=== PATIENT | male | born 1960 | race Caucasian/White ===

== ENCOUNTER → 2016-12-18 | Outpatient (REF) | payer MEDICARE, MEDICAID ==
[~2016-12-18] MED LIST: ACET-654 PO; ADV250INH INH; ALBU17IN INH; ALTA1CAP2 PO; ASPI32ECTA PO; ASPI81CH PO; ASPI81TA85 PO; ATEN25TA PO; AUGM875T27 PO; AVEL1TAB PO; CARV12.5 PO; CINA30TA PO; CITA20TA4 PO; CRES20TA PO; CYCL10TA PO; DOCU100C PO; DUCO5TAB PO; FENO134C PO; FENT25PA TD; FOLI1TAB2 PO; GABA-282 PO; LISI-542 PO; MAGN400T5 PO; MUCI600T34 PO; MULTTAB33 PO; NICO21DI5 TD; OMEP40CA2 PO; PERC5TAB6 PO; PRED10TA PO; TIOT18INH INH; TRIC1TAB PO; VITA100T2 PO; ZOFR8TAB PO
[2016-12-18 10:46] LABS: ALBUMIN 3.8 GM/DL (3.2-5.2); ALBUMIN/GLOBULIN RATIO 1.27 (1.00-1.93); ALKALINE PHOSPHATASE 74 U/L (45-117); ALT/SGPT 27 U/L (12-78); ANION GAP 8 MEQ/L (8-16); AST/SGOT 17 U/L (15-37); BILIRUBIN,TOTAL 0.9 MG/DL (0.2-1.0); BLOOD UREA NITROGEN 13 MG/DL (7-18); CALCIUM LEVEL 8.8 MG/DL (8.5-10.1); CARBON DIOXIDE LEVEL 26 MEQ/L (21-32); CHLORIDE LEVEL 107 MEQ/L (98-107); CHOLESTEROL LEVEL 159 MG/DL (<200); CREATININE FOR GFR 0.76 MG/DL (0.70-1.30); GLOMERULAR FILTRATION RATE > 60.0 (>56); GLUCOSE, FASTING 102 MG/DL (70-105); POTASSIUM SERUM 4.1 MEQ/L (3.5-5.1); SODIUM LEVEL 141 MEQ/L (136-145); TOTAL PROTEIN 6.8 GM/DL (6.4-8.2); TRIGLYCERIDES LEVEL 233 MG/DL (<150)
== END ==
LOC: M LABDRAW1 09:15
PROVIDERS: ATTEND Physician Assistant
DX: E78.4 Other hyperlipidemia (principal); Z12.5 Encounter for screening for malignant neoplasm of prostate; I10 Essential (primary) hypertension
CPT/HCPCS: 36415; 80053; 80061; G0103

== ENCOUNTER → 2017-04-17 | Outpatient (REF) | payer MEDICARE, MEDICAID ==
[~2017-04-17] MED LIST changes: -ACET-654 PO; +ACET1TAB17 PO; +ASPI325T24 PO; -ASPI32ECTA PO; -AUGM875T27 PO; +AUGM875T28 PO; -AVEL1TAB PO; +AVEL1TAB3 PO; -DOCU100C PO; +DOCU100C16 PO; +DOXY50CA; -FOLI1TAB2 PO; +FOLI1TAB4 PO; -MUCI600T34 PO; +MUCI600T37 PO; +PERC5TAB12 PO; -PERC5TAB6 PO; +PRED10TA2 PO; +PROAAER10; +ZITHTAB PO
[2017-04-17 12:08] LABS: ALBUMIN 3.8 GM/DL (3.2-5.2); ALBUMIN/GLOBULIN RATIO 1.23 (1.00-1.93); ALKALINE PHOSPHATASE 65 U/L (45-117); ALT/SGPT 29 U/L (12-78); ANION GAP 10 MEQ/L (8-16); AST/SGOT 17 U/L (15-37); BILIRUBIN,DIRECT 0.2 MG/DL (0.0-0.2); BILIRUBIN,TOTAL 0.9 MG/DL (0.2-1.0); BLOOD UREA NITROGEN 13 MG/DL (7-18); CALCIUM LEVEL 9.5 MG/DL (8.5-10.1); CARBON DIOXIDE LEVEL 25 MEQ/L (21-32); CHLORIDE LEVEL 107 MEQ/L (98-107); CHOLESTEROL LEVEL 173 MG/DL (<200); CREATININE FOR GFR 0.66 MG/DL (0.70-1.30); GLOMERULAR FILTRATION RATE > 60.0 (>56); GLUCOSE, FASTING 109 MG/DL (70-105); PHOSPHORUS LEVEL 3.1 MG/DL (2.5-4.9); POTASSIUM SERUM 4.2 MEQ/L (3.5-5.1); SODIUM LEVEL 142 MEQ/L (136-145); TOTAL PROTEIN 6.9 GM/DL (6.4-8.2); TRIGLYCERIDES LEVEL 271 MG/DL (<150)
== END ==
LOC: M LABDRAW1 11:33
PROVIDERS: ATTEND Nurse Practitioner Family
DX: E78.2 Mixed hyperlipidemia (principal); I10 Essential (primary) hypertension

== ENCOUNTER → 2017-08-05 | Outpatient (REF) | payer MEDICARE, MEDICAID ==
[2017-08-05 11:27] LABS: BASO # 0.1 10^3/uL (0.0-0.2); BASO % 0.9 % (0.0-1.0); EOS # 0.2 10^3/uL (0.0-0.50); EOS % 2.7 % (0.0-3.0); IMMATURE GRANULOCYTE % 0.5 % (0-0); LYMPH # 2.8 10^3/uL (1.5-4.5); LYMPH % 34.4 % (24.0-44.0); MEAN CORPUSCULAR HEMOGLOBIN 29.9 pg (27.0-33.0); MEAN CORPUSCULAR HGB CONC 32.2 g/dl (32.0-36.5); MEAN CORPUSCULAR VOLUME 92.6 fl (80.0-96.0); MONO # 0.7 10^3/uL (0.0-0.8); MONO % 8.4 % (0.0-5.0); NEUTROPHILS # 4.3 10^3/uL (1.8-7.7); NEUTROPHILS % 53.1 % (36.0-66.0); PLATELET COUNT, AUTOMATED 391 10^3/uL (150-450); RED CELL DISTRIBUTION WIDTH 13.7 % (11.5-14.5); WHITE BLOOD COUNT 8.2 10^3/uL (4.0-10.0)
[2017-08-05 11:58] LABS: VITAMIN B12 LEVEL 600 PG/ML (247-911)
[2017-08-05 12:08] LABS: ALBUMIN 3.9 GM/DL (3.2-5.2); ALBUMIN/GLOBULIN RATIO 1.34 (1.00-1.93); ALKALINE PHOSPHATASE 65 U/L (45-117); ALT/SGPT 26 U/L (12-78); ANION GAP 4 MEQ/L (8-16); AST/SGOT 19 U/L (7-37); BILIRUBIN,TOTAL 0.8 MG/DL (0.2-1.0); BLOOD UREA NITROGEN 16 MG/DL (7-18); CALCIUM LEVEL 9.1 MG/DL (8.5-10.1); CARBON DIOXIDE LEVEL 30 MEQ/L (21-32); CHLORIDE LEVEL 107 MEQ/L (98-107); CHOLESTEROL LEVEL 169 MG/DL (<200); CREATININE FOR GFR 0.77 MG/DL (0.70-1.30); FREE T4 0.94 NG/DL (0.76-1.46); GLOMERULAR FILTRATION RATE > 60.0 (>56); GLUCOSE, FASTING 93 MG/DL (70-105); POTASSIUM SERUM 4.4 MEQ/L (3.5-5.1); SODIUM LEVEL 141 MEQ/L (136-145); TOTAL PROTEIN 6.8 GM/DL (6.4-8.2); TRIGLYCERIDES LEVEL 226 MG/DL (<150)
[2017-08-05 13:15] LABS: ESTIMATED AVERAGE GLUCOSE 120 MG/DL (60-110)
== END ==
LOC: M LABDRAW1 10:36
DX: I10 Essential (primary) hypertension (principal); R73.01 Impaired fasting glucose; E78.2 Mixed hyperlipidemia; E55.9 Vitamin D deficiency, unspecified
CPT/HCPCS: 82550

== ENCOUNTER → 2017-08-05 | Outpatient (CLI) | payer MEDICARE, MEDICAID | LOC: M SLEEP HO 13:42 | DX: G47.33 Obstructive sleep apnea (adult) (pediatric) (principal); E03.9 Hypothyroidism, unspecified; R73.01 Impaired fasting glucose | CPT/HCPCS: G0399 ==

== ENCOUNTER → 2017-08-12 | Outpatient (CLI) | payer MEDICARE, MEDICAID | LOC: M RAD 07:39 | DX: Z12.2 Encounter for screening for malignant neoplasm of respiratory organs (principal); F17.210 Nicotine dependence, cigarettes, uncomplicated | CPT/HCPCS: G0297 ==

== ENCOUNTER → 2017-10-12 | Outpatient (CLI) | payer MEDICARE, MEDICAID | LOC: M SLEEP 19:20 | DX: G47.33 Obstructive sleep apnea (adult) (pediatric) (principal) | CPT/HCPCS: 95811 ==

== ENCOUNTER → 2017-11-02 | Outpatient (REF) | payer MEDICARE, MEDICAID ==
[2017-11-02 11:55] LABS: BASO # 0.1 10^3/uL (0.0-0.2); BASO % 0.7 % (0.0-1.0); EOS # 0.2 10^3/uL (0.0-0.50); EOS % 2.4 % (0.0-3.0); HEMATOCRIT 48.4 % (42.0-52.0); HEMOGLOBIN 16.1 g/dl (14.0-18.0); IMMATURE GRANULOCYTE % 0.2 % (0-3.0); LYMPH % 33.4 % (24.0-44.0); MEAN CORPUSCULAR HEMOGLOBIN 30.4 pg (27.0-33.0); MEAN CORPUSCULAR HGB CONC 33.3 g/dl (32.0-36.5); MEAN CORPUSCULAR VOLUME 91.3 fl (80.0-96.0); MONO # 0.8 10^3/uL (0.0-0.8); MONO % 8.3 % (0.0-5.0); PLATELET COUNT, AUTOMATED 374 10^3/uL (150-450); RED CELL DISTRIBUTION WIDTH 13.8 % (11.5-14.5); WHITE BLOOD COUNT 9.1 10^3/uL (4.0-10.0)
== END ==
LOC: M LABDRAW1 09:59
DX: I10 Essential (primary) hypertension (principal)
CPT/HCPCS: 86140

== ENCOUNTER → 2017-12-29 | Outpatient (REF) | payer MEDICARE, MEDICAID | LOC: M SFHCPLAZ 12:55 | DX: D29.4 Benign neoplasm of scrotum (principal); L91.8 Other hypertrophic disorders of the skin | CPT/HCPCS: 88305 ==

== ENCOUNTER → 2018-02-19 | Outpatient (REF) | payer MEDICARE, MEDICAID ==
[2018-02-19 13:37] LABS: ALBUMIN 3.5 GM/DL (3.2-5.2); ALBUMIN/GLOBULIN RATIO 1.09 (1.00-1.93); ALKALINE PHOSPHATASE 73 U/L (45-117); ALT/SGPT 28 U/L (12-78); ANION GAP 8 MEQ/L (8-16); AST/SGOT 11 U/L (7-37); BILIRUBIN,TOTAL 0.7 MG/DL (0.2-1.0); BLOOD UREA NITROGEN 14 MG/DL (7-18); CALCIUM LEVEL 8.9 MG/DL (8.5-10.1); CARBON DIOXIDE LEVEL 28 MEQ/L (21-32); CHLORIDE LEVEL 108 MEQ/L (98-107); CHOLESTEROL LEVEL 124 MG/DL (<200); CHOLESTEROL RISK RATIO 3.351 (<5); CREATININE FOR GFR 0.69 MG/DL (0.70-1.30); GLOMERULAR FILTRATION RATE > 60.0 (>56); GLUCOSE, FASTING 99 MG/DL (70-100); HDL CHOLESTEROL 37 MG/DL (>40); LDL CHOLESTEROL 42.8 MG/DL (<100); MAGNESIUM LEVEL 2.2 MG/DL (1.8-2.4); NON-HDL-C 87 MG/DL; POTASSIUM SERUM 4.8 MEQ/L (3.5-5.1); PSA SCREENING 0.91 NG/ML (< 4.0); SODIUM LEVEL 144 MEQ/L (136-145); TOTAL PROTEIN 6.7 GM/DL (6.4-8.2); TRIGLYCERIDES LEVEL 221 MG/DL (<150)
[2018-02-19 13:55] LABS: ESTIMATED AVERAGE GLUCOSE 128 MG/DL (60-110); HEMOGLOBIN A1c 6.1 %
== END ==
LOC: M LABDRAW1 11:59
DX: E78.2 Mixed hyperlipidemia (principal); R73.01 Impaired fasting glucose; Z12.5 Encounter for screening for malignant neoplasm of prostate
CPT/HCPCS: 83735

== ENCOUNTER → 2018-07-27 | Outpatient (REF) | payer MEDICARE, MEDICAID ==
[~2018-07-27] MED LIST changes: -ACET1TAB17 PO; +ACET1TAB55 PO; -ASPI325T24 PO; +ASPI325T25 PO; -FOLI1TAB4 PO; +FOLI1TAB5 PO; -GABA-282 PO; +GABA-843 PO; -VITA100T2 PO; +VITA100T8 PO; -ZOFR8TAB PO; +ZOFR8TAB24 PO
[2018-07-27 11:00] LABS: APPEARANCE, URINE CLEAR (CLEAR); BACTERIA, URINE AUTO NEGATIVE (NEGATIVE); BILIRUBIN, URINE AUTO NEGATIVE (NEGATIVE); BLOOD, URINE BLOOD NEGATIVE (NEGATIVE); COLOR, URINE YELLOW (YELLOW); GLUCOSE, URINE (UA) AUTO NEGATIVE (NEGATIVE); KETONE, URINE AUTO NEGATIVE (NEGATIVE); LEUKOCYTE ESTERASE, URINE AUTO NEGATIVE (NEGATIVE); NITRITE, URINE AUTO NEGATIVE (NEGATIVE); PROTEIN, URINE AUTO NEGATIVE (NEGATIVE); RBC, URINE AUTO 1 /HPF (0-3); SPECIFIC GRAVITY URINE AUTO 1.016 (1.002-1.035); SQUAMOUS EPITHELIAL CELL UR AU 0 /HPF (0-6); UROBILINOGEN, URINE AUTO 0.2 mg/dL (0.0-2.0); WBC, URINE AUTO 0 /HPF (0-3)
[2018-07-27 11:15] LABS: BASO # 0.1 10^3/uL (0.0-0.2); BASO % 0.7 % (0.0-1.0); EOS # 0.2 10^3/uL (0.0-0.50); EOS % 2.5 % (0.0-3.0); HEMOGLOBIN 15.9 g/dl (13.5-17.5); LYMPH # 2.9 10^3/uL (1.5-4.5); MEAN CORPUSCULAR HEMOGLOBIN 30.5 pg (27.0-33.0); MEAN CORPUSCULAR HGB CONC 33.1 g/dl (32.0-36.5); MONO # 0.7 10^3/uL (0.0-0.8); MONO % 7.6 % (0.0-5.0); NEUTROPHILS # 4.7 10^3/uL (1.8-7.7); PLATELET COUNT, AUTOMATED 328 10^3/uL (150-450); RED BLOOD COUNT 5.22 10^6/uL (4.30-6.10); WHITE BLOOD COUNT 8.6 10^3/uL (4.0-10.0)
[2018-07-27 11:25] LABS: ALBUMIN 3.7 GM/DL (3.2-5.2); ALT/SGPT 31 U/L (12-78); BILIRUBIN,TOTAL 0.8 MG/DL (0.2-1.0); BLOOD UREA NITROGEN 16 MG/DL (7-18); CALCIUM LEVEL 9.2 MG/DL (8.5-10.1); CARBON DIOXIDE LEVEL 29 MEQ/L (21-32); CHLORIDE LEVEL 106 MEQ/L (98-107); CREATININE FOR GFR 0.67 MG/DL (0.70-1.30); GLOMERULAR FILTRATION RATE > 60.0 (>56); GLUCOSE, FASTING 92 MG/DL (70-100); POTASSIUM SERUM 4.8 MEQ/L (3.5-5.1); SODIUM LEVEL 141 MEQ/L (136-145); TOTAL PROTEIN 6.9 GM/DL (6.4-8.2)
[2018-07-27 11:33] LABS: PTH INTACT 34.6 PG/ML (18.5-88.0); TOTAL 25(OH) VITAMIN D 30.9 NG/ML (30.0-100.0); VITAMIN B12 LEVEL 471 PG/ML (247-911)
[2018-07-27 12:39] LABS: MALB URINE SIEMENS 5.2 MG/L; MAU/CREAT RATIO 4.6 MCG/MG (0.0-30.0)
== END ==
LOC: M LABDRAW1 10:26
PROVIDERS: ATTEND Family Medicine
DX: R73.01 Impaired fasting glucose (principal); E55.9 Vitamin D deficiency, unspecified; D75.89 Other specified diseases of blood and blood-forming organs

== ENCOUNTER → 2018-08-16 | Outpatient (CLI) | payer MEDICARE, MEDICAID ==
[~2018-08-16] MED LIST changes: +FOLI1TAB11 PO; -FOLI1TAB5 PO; -NICO21DI5 TD; +NICO21DI6 TD
--- NOTE | 2018-08-16 08:54 | REP ---
Low-dose lung cancer screening CT study of the chest without contrast: History: Nicotine dependence. Comparison study is from August 12, 2017, May 06, 2016, March 28, 2015, and January 28, 2014. Dose reduction was performed utilizing CARE dose with automated adjustment of the kV and MAS according to patient size; iterative reconstruction, automated exposure control, as well as adaptive dose shielding. CT findings: There are scattered areas of linear fibrosis in the right upper lobe and right lower lobe which are unchanged from August 12, 2017 study and improved when compared with the April 2016 exam. The right lower lobe fibrotic changes are less prominent than on the August 12, 2017 exam. No significant pulmonary nodule or mass lesion is observed. Impression: Lung-RADS category II benign findings. Stable fibrotic areas on the right. Annual screening recommended. Electronically Signed by Omar Jacome MD 08/16/2018 10:56 A
== END ==
LOC: M RAD 07:36
PROVIDERS: ATTEND Family Medicine
DX: Z12.2 Encounter for screening for malignant neoplasm of respiratory organs (principal); Z87.891 Personal history of nicotine dependence

== ENCOUNTER → 2019-08-22 | Outpatient (REF) | payer MEDICARE, MEDICAID ==
[~2019-08-22] MED LIST changes: +ASPI-255 PO; -ASPI325T25 PO; -ASPI81CH PO; +ASPI81CH49 PO; -CINA30TA PO; +CINA30TA4 PO; -CITA20TA4 PO; +CITA20TA6 PO; -CRES20TA PO; +CRES20TA2 PO; +FENT25DI33 TD; -FENT25PA TD; -OMEP40CA2 PO; +OMEP40CA97 PO; +PRED-351 PO; -PRED10TA PO
[2019-08-22 12:05] LABS: BASO # 0.1 10^3/uL (0.0-0.2); BASO % 0.8 % (0.0-1.0); EOS # 0.2 10^3/uL (0.0-0.5); HEMATOCRIT 51.8 % (42.0-52.0); HEMOGLOBIN 16.2 g/dl (13.5-17.5); LYMPH # 2.5 10^3/uL (1.5-5.0); LYMPH % 31.7 % (24.0-44.0); MEAN CORPUSCULAR HEMOGLOBIN 29.8 pg (27.0-33.0); MEAN CORPUSCULAR HGB CONC 31.3 g/dl (32.0-36.5); MEAN CORPUSCULAR VOLUME 95.4 fl (80.0-96.0); MONO # 0.7 10^3/uL (0.0-0.8); MONO % 9.2 % (0.0-5.0); NEUTROPHILS # 4.4 10^3/uL (1.5-8.5); PLATELET COUNT, AUTOMATED 322 10^3/uL (150-450); RED BLOOD COUNT 5.43 10^6/uL (4.30-6.10)
[2019-08-22 12:46] LABS: CHOLESTEROL RISK RATIO 4.575 (<5); FREE T4 0.83 NG/DL (0.76-1.46); MAGNESIUM LEVEL 2.2 MG/DL (1.8-2.4); THYROID STIMULATING HORMONE 1.5 uIU/ML (0.358-3.740)
== END ==
LOC: M LABDRAW1 11:29
PROVIDERS: ATTEND Family Medicine
DX: Z12.5 Encounter for screening for malignant neoplasm of prostate (principal); D75.89 Other specified diseases of blood and blood-forming organs; E78.2 Mixed hyperlipidemia; R73.01 Impaired fasting glucose; J30.89 Other allergic rhinitis
CPT/HCPCS: 36415; 80061; 83036; 83525; 83735; 84439; 84443; 85025; 86003; G0103

== ENCOUNTER → 2019-08-30 | Outpatient (CLI) | payer MEDICAID, MEDICARE ==
--- NOTE | 2019-08-30 09:16 | REP ---
Low-dose lung screening chest CT: The study is performed without IV contrast. Images are presented at lung windowing only. Comparisons are 08/16/2018 and 08/12/2017. There are no nodules or masses. There are no infiltrates or pleural effusions. There is chronic stable parenchymal scarring in the right upper lobe and lingula, unchanged. There is chronic stable focal mild pleural thickening posterolaterally in the right upper lobe, unchanged. Impression: There are chronic stable findings. There are no lung masses or nodules. Category one low-dose lung screening chest CT. The probability of malignancy is less than 1%. Electronically Signed by Virgilio Lord MD 08/30/2019 09:08 A
== END ==
LOC: M RAD 07:55
PROVIDERS: ATTEND Family Medicine
DX: Z12.2 Encounter for screening for malignant neoplasm of respiratory organs (principal); Z87.891 Personal history of nicotine dependence

== ENCOUNTER → 2020-01-23 | Outpatient (REF) | payer MEDICAID, MEDICARE ==
[~2020-01-23] MED LIST changes: -ASPI81TA85 PO; +ASPI81TA86 PO; +CYCL-707 PO; -CYCL10TA PO; -DUCO5TAB PO; +DUCO5TAB2 PO
[2020-01-23 16:24] LABS: ALBUMIN 3.8 GM/DL (3.2-5.2); ALT/SGPT 30 U/L (12-78); BILIRUBIN,TOTAL 0.8 MG/DL (0.2-1.0); BLOOD UREA NITROGEN 18 MG/DL (7-18); CALCIUM LEVEL 9.3 MG/DL (8.5-10.1); CARBON DIOXIDE LEVEL 28 MEQ/L (21-32); CHLORIDE LEVEL 107 MEQ/L (98-107); CHOLESTEROL LEVEL 180 MG/DL (<200); CREATININE FOR GFR 0.73 MG/DL (0.70-1.30); GLOMERULAR FILTRATION RATE > 60.0 (>56); GLUCOSE, FASTING 84 MG/DL (70-100); HDL CHOLESTEROL 36 MG/DL (>40); LDL CHOLESTEROL 67 MG/DL (<100); NON-HDL-C 144 MG/DL; SODIUM LEVEL 140 MEQ/L (136-145); TOTAL PROTEIN 6.8 GM/DL (6.4-8.2); TRIGLYCERIDES LEVEL 386 MG/DL (<150)
[2020-01-23 16:38] LABS: BASO # 0.1 10^3/uL (0.0-0.2); BASO % 0.6 % (0.0-1.0); EOS # 0.3 10^3/uL (0.0-0.5); EOS % 3.4 % (0.0-3.0); HEMATOCRIT 49.1 % (42.0-52.0); HEMOGLOBIN 16.3 g/dl (13.5-17.5); LYMPH # 3.6 10^3/uL (1.5-5.0); MEAN CORPUSCULAR HEMOGLOBIN 31.3 pg (27.0-33.0); MEAN CORPUSCULAR HGB CONC 33.2 g/dl (32.0-36.5); MEAN CORPUSCULAR VOLUME 94.4 fl (80.0-96.0); MONO # 0.9 10^3/uL (0.0-0.8); MONO % 9.8 % (0.0-5.0); NEUTROPHILS # 4.5 10^3/uL (1.5-8.5); NEUTROPHILS % 47.9 % (36.0-66.0); PLATELET COUNT, AUTOMATED 315 10^3/uL (150-450); WHITE BLOOD COUNT 9.3 10^3/uL (4.0-10.0)
[2020-01-25 11:08] LABS: H PYLORI SERUM QUANT IgG ABY 0.23 (0.00-0.79); INSULIN LEVEL 17.9 uIU/mL (2.6-24.9)
== END ==
LOC: M SFHCPLAZ 14:24
PROVIDERS: ATTEND Family Medicine
DX: M47.816 Spondylosis without myelopathy or radiculopathy, lumbar region (principal); R73.01 Impaired fasting glucose; I10 Essential (primary) hypertension; E78.2 Mixed hyperlipidemia
CPT/HCPCS: 36415; 80053; 80061; 83036; 83525; 85025; 86677; G0463

== ENCOUNTER → 2020-06-21 | Outpatient (REF) | payer MEDICARE, MEDICAID ==
[2020-06-21 15:42] LABS: BASO # 0.1 10^3/uL (0.0-0.2); BASO % 0.5 % (0.0-1.0); EOS # 0.2 10^3/uL (0.0-0.5); EOS % 2.3 % (0.0-3.0); HEMATOCRIT 51.4 % (42.0-52.0); HEMOGLOBIN 16.4 g/dl (13.5-17.5); LYMPH # 2.9 10^3/uL (1.5-5.0); LYMPH % 28.9 % (24.0-44.0); MEAN CORPUSCULAR HEMOGLOBIN 30.2 pg (27.0-33.0); MEAN CORPUSCULAR HGB CONC 31.9 g/dl (32.0-36.5); MEAN CORPUSCULAR VOLUME 94.7 fl (80.0-96.0); MONO # 0.9 10^3/uL (0.0-0.8); MONO % 8.8 % (0.0-5.0); NEUTROPHILS % 59.1 % (36.0-66.0); PLATELET COUNT, AUTOMATED 334 10^3/uL (150-450); RED BLOOD COUNT 5.43 10^6/uL (4.30-6.10); WHITE BLOOD COUNT 10.1 10^3/uL (4.0-10.0)
[2020-06-21 15:55] LABS: HEMOGLOBIN A1c 5.7 %
[2020-06-21 16:16] LABS: ALBUMIN 3.9 GM/DL (3.2-5.2); ALT/SGPT 26 U/L (12-78); BILIRUBIN,TOTAL 0.9 MG/DL (0.2-1.0); BLOOD UREA NITROGEN 18 MG/DL (7-18); CALCIUM LEVEL 9.9 MG/DL (8.5-10.1); CARBON DIOXIDE LEVEL 27 MEQ/L (21-32); CHLORIDE LEVEL 105 MEQ/L (98-107); FREE T4 0.84 NG/DL (0.76-1.46); GLOMERULAR FILTRATION RATE > 60.0 (>56); GLUCOSE, FASTING 93 MG/DL (70-100); NT-PRO BNP 24 PG/ML (<125); POTASSIUM SERUM 4.8 MEQ/L (3.5-5.1); SODIUM LEVEL 139 MEQ/L (136-145)
== END ==
LOC: M SFHCPLAZ 12:16
PROVIDERS: ATTEND Family Medicine
DX: R73.01 Impaired fasting glucose (principal); I10 Essential (primary) hypertension; J44.9 Chronic obstructive pulmonary disease, unspecified; R61 Generalized hyperhidrosis; Z12.5 Encounter for screening for malignant neoplasm of prostate
CPT/HCPCS: 36415; 80053; 83036; 83525; 83880; 84439; 84443; 85025; G0103; G0463

== ENCOUNTER → 2020-09-03 | Outpatient (CLI) | payer MEDICAID, MEDICARE ==
[~2020-09-03] MED LIST changes: +GABA-282 PO; -GABA-843 PO; -LISI-542 PO; +LISI-898 PO
--- NOTE | 2020-09-04 10:20 | REP ---
INDICATION: ENCOUNTER FOR SCREENING FOR LUNG CANCER COMPARISON: 08/30/2019 TECHNIQUE: Axial noncontrast images from the thoracic inlet to the upper abdomen using low-dose lung screening technique (LDCT). FINDINGS: Bilateral lung estrada are well aerated and again demonstrate minimal stable chronic fibroatelectatic changes. No acute consolidation, significant nodule or mass. No effusion. No pneumothorax. Tracheobronchial tree is patent. No obvious adenopathy. Atherosclerotic changes to the thoracic aorta and coronary arteries noted. IMPRESSION: Stable chronic changes. Lung-RADS category 1. Management recommendations include annual low-dose CT surveillance. <Electronically signed by Guanaco Kaur > 09/04/20 [id number]
== END ==
LOC: M RAD 08:35
PROVIDERS: ATTEND Family Medicine
DX: Z12.2 Encounter for screening for malignant neoplasm of respiratory organs (principal)

== ENCOUNTER → 2021-03-28 | Outpatient (CLI) | payer MEDICARE ==
[~2021-03-28] MED LIST changes: +CVS50CAP PO; +EZET10TA21; +HYDR-3713 PO; +MELO7.5T35; +OMEP40CA4 PO; -OMEP40CA97 PO; +ZOFR4TAB16 PO
[2021-03-28 12:07] LABS: BLOOD UREA NITROGEN 16 MG/DL (7-18); CALCIUM LEVEL 9.1 MG/DL (8.5-10.1); CARBON DIOXIDE LEVEL 27 MEQ/L (21-32); CHLORIDE LEVEL 106 MEQ/L (98-107); CHOLESTEROL LEVEL 181 MG/DL (<200); CHOLESTEROL RISK RATIO 5.171 (<5); CREATININE FOR GFR 0.71 MG/DL (0.70-1.30); GLOMERULAR FILTRATION RATE > 60.0 (>56); GLUCOSE, FASTING 110 MG/DL (70-100); HDL CHOLESTEROL 35 MG/DL (>40); NON-HDL-C 146 MG/DL; POTASSIUM SERUM 4.4 MEQ/L (3.5-5.1); SODIUM LEVEL 137 MEQ/L (136-145); TRIGLYCERIDES LEVEL 507 MG/DL (<150)
== END ==
LOC: M PLALAB 07:09
PROVIDERS: ATTEND Physician Assistant
DX: E78.2 Mixed hyperlipidemia (principal)

== ENCOUNTER → 2021-03-28 | Outpatient (CLI) | payer MEDICARE ==
[2021-03-28 11:39] LABS: BASO # 0.1 10^3/uL (0.0-0.2); BASO % 0.9 % (0.0-1.0); EOS # 0.2 10^3/uL (0.0-0.5); EOS % 2.8 % (0.0-3.0); HEMATOCRIT 50.3 % (42.0-52.0); HEMOGLOBIN 16.4 g/dl (13.5-17.5); LYMPH # 2.8 10^3/uL (1.5-5.0); LYMPH % 32.8 % (24.0-44.0); MEAN CORPUSCULAR HEMOGLOBIN 30.8 pg (27.0-33.0); MEAN CORPUSCULAR HGB CONC 32.6 g/dl (32.0-36.5); MEAN CORPUSCULAR VOLUME 94.5 fl (80.0-96.0); MONO # 0.7 10^3/uL (0.0-0.8); MONO % 7.8 % (2.0-8.0); NEUTROPHILS # 4.7 10^3/uL (1.5-8.5); NEUTROPHILS % 55.2 % (36.0-66.0); PLATELET COUNT, AUTOMATED 291 10^3/uL (150-450); RED BLOOD COUNT 5.32 10^6/uL (4.30-6.10); WHITE BLOOD COUNT 8.4 10^3/uL (4.0-10.0)
[2021-03-28 11:52] LABS: HEMOGLOBIN A1c 5.9 %
[2021-03-28 12:07] LABS: ALBUMIN 3.7 GM/DL (3.2-5.2); ALT/SGPT 36 U/L (12-78); BILIRUBIN,TOTAL 0.9 MG/DL (0.2-1.0); BLOOD UREA NITROGEN 18 MG/DL (7-18); CALCIUM LEVEL 8.8 MG/DL (8.5-10.1); CARBON DIOXIDE LEVEL 27 MEQ/L (21-32); CHLORIDE LEVEL 106 MEQ/L (98-107); CHOLESTEROL LEVEL 181 MG/DL (<200); CHOLESTEROL RISK RATIO 5.027 (<5); CREATININE FOR GFR 0.69 MG/DL (0.70-1.30); FERRITIN 159 NG/ML (26-388); GLOMERULAR FILTRATION RATE > 60.0 (>56); GLUCOSE, FASTING 111 MG/DL (70-100); HDL CHOLESTEROL 36 MG/DL (>40); NON-HDL-C 145 MG/DL; POTASSIUM SERUM 4.4 MEQ/L (3.5-5.1); SODIUM LEVEL 137 MEQ/L (136-145); TOTAL PROTEIN 6.8 GM/DL (6.4-8.2); TRIGLYCERIDES LEVEL 505 MG/DL (<150); VITAMIN B12 LEVEL 506 PG/ML (247-911)
== END ==
LOC: M PLALAB 07:06
PROVIDERS: ATTEND Family Medicine
DX: D75.89 Other specified diseases of blood and blood-forming organs (principal); R73.01 Impaired fasting glucose; E78.2 Mixed hyperlipidemia; Z79.899 Other long term (current) drug therapy
CPT/HCPCS: 36415; 80048; 80053; 80061; 82607; 82728; 83036; 83525; 84165; 85025; 86335; G0103

== ENCOUNTER → 2021-09-04 | Outpatient (CLI) | payer MEDICARE ==
[~2021-09-04] MED LIST changes: -LISI-898 PO; +LISI5TAB11 PO
== END ==
LOC: M RAD 06:55
PROVIDERS: ATTEND Family Medicine
DX: Z12.2 Encounter for screening for malignant neoplasm of respiratory organs (principal); F17.218 Nicotine dependence, cigarettes, with other nicotine-induced disorders

== ENCOUNTER → 2021-10-07 | Outpatient (CLI) | payer MEDICARE ==
[~2021-10-07] MED LIST changes: -FENO134C PO; +FENO134C16 PO
[2021-10-07 10:55] LABS: ALBUMIN 3.8 GM/DL (3.2-5.2); ALT/SGPT 32 U/L (12-78); BILIRUBIN,TOTAL 1.3 MG/DL (0.2-1.0); BLOOD UREA NITROGEN 18 MG/DL (7-18); CALCIUM LEVEL 9.4 MG/DL (8.5-10.1); CARBON DIOXIDE LEVEL 26 MEQ/L (21-32); CHLORIDE LEVEL 109 MEQ/L (98-107); CHOLESTEROL LEVEL 176 MG/DL (<200); CREATININE FOR GFR 0.69 MG/DL (0.70-1.30); GLOMERULAR FILTRATION RATE > 60.0 (>56); GLUCOSE, FASTING 106 MG/DL (70-100); HDL CHOLESTEROL 44 MG/DL (>40); LDL CHOLESTEROL 64 MG/DL (<100); NON-HDL-C 132 MG/DL; NT-PRO BNP 27 PG/ML (<125); POTASSIUM SERUM 4.3 MEQ/L (3.5-5.1); SODIUM LEVEL 141 MEQ/L (136-145); TRIGLYCERIDES LEVEL 339 MG/DL (<150)
[2021-10-07 11:05] LABS: HEMOGLOBIN A1c 5.8 %; PTH INTACT 40.3 PG/ML (18.5-88.0)
[2021-10-08 09:07] LABS: H PYLORI SERUM QUANT IgG ABY 0.22 (0.00-0.79)
== END ==
LOC: M PLALAB 07:03
PROVIDERS: ATTEND Family Medicine
DX: R73.01 Impaired fasting glucose (principal); E78.00 Pure hypercholesterolemia, unspecified; E78.2 Mixed hyperlipidemia; Z79.899 Other long term (current) drug therapy

== ENCOUNTER → 2021-10-07 | Outpatient (CLI) | payer MEDICARE ==
[~2021-10-07] MED LIST changes: +FENO134C PO; -FENO134C16 PO
[2021-10-07 11:25] LABS: ALBUMIN 3.8 GM/DL (3.2-5.2); ALT/SGPT 30 U/L (12-78); BILIRUBIN,TOTAL 1.2 MG/DL (0.2-1.0); BLOOD UREA NITROGEN 16 MG/DL (7-18); CALCIUM LEVEL 9.5 MG/DL (8.5-10.1); CARBON DIOXIDE LEVEL 22 MEQ/L (21-32); CHLORIDE LEVEL 108 MEQ/L (98-107); CHOLESTEROL LEVEL 173 MG/DL (<200); CHOLESTEROL RISK RATIO 4.119 (<5); CREATININE FOR GFR 0.67 MG/DL (0.70-1.30); GLOMERULAR FILTRATION RATE > 60.0 (>56); GLUCOSE, FASTING 102 MG/DL (70-100); HDL CHOLESTEROL 42 MG/DL (>40); LDL CHOLESTEROL 64 MG/DL (<100); NON-HDL-C 131 MG/DL; POTASSIUM SERUM 4.4 MEQ/L (3.5-5.1); SODIUM LEVEL 138 MEQ/L (136-145); TOTAL PROTEIN 6.7 GM/DL (6.4-8.2); TRIGLYCERIDES LEVEL 336 MG/DL (<150)
== END ==
LOC: M PLALAB 07:06
PROVIDERS: ATTEND Physician Assistant
DX: E78.2 Mixed hyperlipidemia (principal)

== ENCOUNTER → 2021-10-22 | Outpatient (CLI) | payer MEDICARE ==
[~2021-10-22] MED LIST changes: -FENO134C PO; +FENO134C16 PO
== END ==
LOC: M RAD 08:39
PROVIDERS: ATTEND Family Medicine
DX: K76.0 Fatty (change of) liver, not elsewhere classified (principal)

== ENCOUNTER → 2022-03-30 | Outpatient (CLI) | payer MEDICARE ==
[~2022-03-30] MED LIST changes: +CELE1CAP4 PO; +D 50CAP2 PO; -DOXY50CA; +DOXY50CA PO; -EZET10TA21; +EZET10TA21 PO; +FENO1CAP18 PO; +LORA-753 PO; +METF750T36 PO; +ONETAB9 PO; +SENN-111 PO
== END ==
LOC: M LABSMTC 10:15
PROVIDERS: ATTEND Anesthesiology
DX: Z01.818 Encounter for other preprocedural examination (principal); Z11.52 Encounter for screening for COVID-19

== ENCOUNTER → 2022-04-23 | Outpatient (CLI) | payer MEDICARE ==
[2022-04-23 10:08] LABS: BASO # 0.1 10^3/uL (0.0-0.2); BASO % 1.1 % (0.0-1.0); EOS # 0.2 10^3/uL (0.0-0.5); EOS % 3.2 % (0.0-3.0); HEMATOCRIT 51.3 % (42.0-52.0); HEMOGLOBIN 16.4 g/dl (13.5-17.5); LYMPH # 2.1 10^3/uL (1.5-5.0); LYMPH % 29.6 % (24.0-44.0); MEAN CORPUSCULAR HEMOGLOBIN 30.9 pg (27.0-33.0); MEAN CORPUSCULAR VOLUME 96.6 fl (80.0-96.0); MONO # 0.6 10^3/uL (0.0-0.8); MONO % 8.8 % (2.0-8.0); NEUTROPHILS # 4.1 10^3/uL (1.5-8.5); NEUTROPHILS % 56.9 % (36.0-66.0); PLATELET COUNT, AUTOMATED 324 10^3/uL (150-450); RED BLOOD COUNT 5.31 10^6/uL (4.30-6.10); WHITE BLOOD COUNT 7.2 10^3/uL (4.0-10.0)
[2022-04-23 10:37] LABS: HEMOGLOBIN A1c 5.8 %
[2022-04-23 10:58] LABS: ALBUMIN 3.9 GM/DL (3.2-5.2); ALT/SGPT 28 U/L (12-78); BILIRUBIN,TOTAL 0.8 MG/DL (0.2-1.0); BLOOD UREA NITROGEN 16 MG/DL (7-18); CALCIUM LEVEL 9.9 MG/DL (8.8-10.2); CARBON DIOXIDE LEVEL 30 MEQ/L (21-32); CHLORIDE LEVEL 108 MEQ/L (98-107); CREATININE FOR GFR 0.87 MG/DL (0.70-1.30); FERRITIN 168 NG/ML (26-388); GLOMERULAR FILTRATION RATE > 60.0 (>49); GLUCOSE, FASTING 114 MG/DL (70-100); POTASSIUM SERUM 5.1 MEQ/L (3.5-5.1); SODIUM LEVEL 140 MEQ/L (136-145); TOTAL PROTEIN 6.9 GM/DL (6.4-8.2)
[2022-04-23 11:22] LABS: TOTAL 25(OH) VITAMIN D 30.5 NG/ML (30.0-100.0)
[2022-04-23 11:23] LABS: PTH INTACT 21.7 PG/ML (18.5-88.0)
[2022-04-24 12:08] LABS: INSULIN LEVEL 23.9 uIU/mL (2.6-24.9); TISSUE TRANSGLUTAMINASE IgA <2 U/mL (0-3)
== END ==
LOC: M PLALAB 07:47
PROVIDERS: ATTEND Family Medicine
DX: E55.9 Vitamin D deficiency, unspecified (principal); R73.01 Impaired fasting glucose; D75.89 Other specified diseases of blood and blood-forming organs; R14.0 Abdominal distension (gaseous); K76.0 Fatty (change of) liver, not elsewhere classified; Z12.5 Encounter for screening for malignant neoplasm of prostate; E78.2 Mixed hyperlipidemia; Z79.899 Other long term (current) drug therapy
CPT/HCPCS: 36415; 80053; 82105; 82306; 82728; 83036; 83525; 83970; 85025; 85046; 86364; G0103

== ENCOUNTER → 2022-08-11 | Outpatient (CLI) | payer MEDICARE ==
[~2022-08-11] MED LIST changes: -FENO134C16 PO; +FENO134C20 PO; +NITR0.4S14 SL
== END ==
LOC: M LABSMTC 08:56
PROVIDERS: ATTEND Anesthesiology
DX: Z01.812 Encounter for preprocedural laboratory examination (principal); Z11.52 Encounter for screening for COVID-19

== ENCOUNTER 2022-08-13 06:43 | Day surgery (SDC) | payer MEDICARE, OTHER ==
[~2022-08-13] VITALS: Ht 172.7 cm; Wt 107.0 kg
[~2022-08-13 06:43] MED LIST changes: +NS 1,000 ML IV ONE
[2022-08-13] MEDS ORDERED: fentaNYL 100 MCG/2 ML INJECTION As Ordered ONE (07:30)
[2022-08-13] MEDS ORDERED: LIDOCAINE 2% 100MG/5ML SDV (FOR ANES.) As Ordered ONE (07:41)
[2022-08-13] MEDS ORDERED: propofoL 200 MG/20 ML VIAL As Ordered ONE (07:41)
[2022-08-13 08:19] VITALS: BP 118/69
== END 2022-08-13 08:22 | disposition home or self-care (01) ==
LOC: M OPP 06:43
PROVIDERS: ATTEND Internal Medicine Gastroenterology
DX: Z86.010 Personal history of colon polyps (principal); D12.3 Benign neoplasm of transverse colon; K64.0 First degree hemorrhoids; K57.30 Diverticulosis of large intestine without perforation or abscess without bleeding; Z98.0 Intestinal bypass and anastomosis status; K22.89 Other specified disease of esophagus; K44.9 Diaphragmatic hernia without obstruction or gangrene; I25.10 Atherosclerotic heart disease of native coronary artery without angina pectoris; I10 Essential (primary) hypertension; E78.5 Hyperlipidemia, unspecified; K21.9 Gastro-esophageal reflux disease without esophagitis; M19.90 Unspecified osteoarthritis, unspecified site; F41.9 Anxiety disorder, unspecified; F32.A Depression, unspecified; G43.909 Migraine, unspecified, not intractable, without status migrainosus; J44.9 Chronic obstructive pulmonary disease, unspecified; G47.30 Sleep apnea, unspecified; F17.210 Nicotine dependence, cigarettes, uncomplicated; Z86.73 Personal history of transient ischemic attack (TIA), and cerebral infarction without residual deficits; Z95.5 Presence of coronary angioplasty implant and graft; Z79.899 Other long term (current) drug therapy
CPT/HCPCS: 43239; 45385; 88305; J3010

== ENCOUNTER → 2022-09-24 | Outpatient (CLI) | payer MEDICARE, OTHER ==
[~2022-09-24] MED LIST changes: -NS 1,000 ML IV ONE
[2022-09-24 10:59] LABS: BASO # 0.1 10^3/uL (0.0-0.2); BASO % 1.1 % (0.0-1.0); EOS # 0.3 10^3/uL (0.0-0.5); EOS % 3.6 % (0.0-3.0); HEMATOCRIT 49.9 % (42.0-52.0); HEMOGLOBIN 16.5 g/dl (13.5-17.5); LYMPH # 2.3 10^3/uL (1.5-5.0); LYMPH % 32.6 % (24.0-44.0); MEAN CORPUSCULAR HEMOGLOBIN 31.1 pg (27.0-33.0); MEAN CORPUSCULAR HGB CONC 33.1 g/dl (32.0-36.5); MEAN CORPUSCULAR VOLUME 94.2 fl (80.0-96.0); MONO # 0.7 10^3/uL (0.0-0.8); MONO % 9.2 % (2.0-8.0); NEUTROPHILS # 3.8 10^3/uL (1.5-8.5); NEUTROPHILS % 53.1 % (36.0-66.0); PLATELET COUNT, AUTOMATED 322 10^3/uL (150-450); WHITE BLOOD COUNT 7.2 10^3/uL (4.0-10.0)
[2022-09-24 11:30] LABS: C REACTIVE PROTEIN QUANTITATIV < 0.40 MG/DL (<1.0)
[2022-09-24 11:31] LABS: CPK CREATINE PHOSPHOKINASE 52 U/L (46-171)
[2022-09-24 12:05] LABS: HEMOGLOBIN A1c 5.8 % (4.0-6.0)
[2022-09-24 14:34] LABS: ALBUMIN 3.9 G/DL (3.2-5.2); ALKALINE PHOSPHATASE 51 U/L (46-116); ALT/SGPT 31 U/L (7.0-40); AST/SGOT 25 U/L (<34); BILIRUBIN,TOTAL 0.9 MG/DL (0.3-1.2); BLOOD UREA NITROGEN 21 MG/DL (9-23); CARBON DIOXIDE LEVEL 28 MMOL/L (20-31); CHLORIDE LEVEL 106 MMOL/L (98-107); CHOLESTEROL LEVEL 209 MG/DL (<200); CHOLESTEROL RISK RATIO 4.18 (<5); CREATININE FOR GFR 0.78 MG/DL (0.70-1.30); GLOMERULAR FILTRATION RATE > 60.0 (>49); GLUCOSE, FASTING 102 MG/DL (74-106); NON-HDL-C 159 MG/DL; SODIUM LEVEL 140 MMOL/L (136-145)
[2022-09-24 22:06] LABS: LDL CHOLESTEROL 96.2 MG/DL (<100); TOTAL PROTEIN 6.9 G/DL (5.7-8.2); TRIGLYCERIDES LEVEL 314 MG/DL (<150)
[2022-09-25 06:08] LABS: APOLIPOPROTEIN B/A-1 RATIO 0.7 ratio (0.0-0.7)
== END ==
LOC: M PLALAB 07:19
PROVIDERS: ATTEND Family Medicine
DX: K76.0 Fatty (change of) liver, not elsewhere classified (principal); I10 Essential (primary) hypertension; E78.2 Mixed hyperlipidemia; Z79.899 Other long term (current) drug therapy

== ENCOUNTER → 2022-09-29 | Outpatient (CLI) | payer OTHER, MEDICARE | LOC: M PLAIMG 11:06 | PROVIDERS: ATTEND Family Medicine | DX: M17.0 Bilateral primary osteoarthritis of knee (principal); M26.642 Arthritis of left temporomandibular joint ==

== ENCOUNTER → 2022-11-05 | Outpatient (CLI) | payer MEDICARE, OTHER | LOC: M RAD 16:48 | PROVIDERS: ATTEND Family Medicine | DX: Z87.891 Personal history of nicotine dependence (principal) ==

== ENCOUNTER → 2023-03-16 | Outpatient (CLI) | payer OTHER ==
[~2023-03-16] MED LIST changes: -SENN-111 PO; +SENN-188 PO
[2023-03-16 10:53] LABS: BASO # 0.1 10^3/uL (0.0-0.2); BASO % 0.9 % (0.0-1.0); EOS # 0.2 10^3/uL (0.0-0.5); EOS % 3.1 % (0.0-3.0); HEMATOCRIT 50.5 % (42.0-52.0); HEMOGLOBIN 16.8 g/dl (13.5-17.5); LYMPH # 2.1 10^3/uL (1.5-5.0); MEAN CORPUSCULAR HEMOGLOBIN 31.4 pg (27.0-33.0); MEAN CORPUSCULAR HGB CONC 33.3 g/dl (32.0-36.5); MEAN CORPUSCULAR VOLUME 94.4 fl (80.0-96.0); MONO # 0.7 10^3/uL (0.0-0.8); MONO % 9.2 % (2.0-8.0); NEUTROPHILS # 4.4 10^3/uL (1.5-8.5); NEUTROPHILS % 58.3 % (36.0-66.0); PLATELET COUNT, AUTOMATED 333 10^3/uL (150-450); RED BLOOD COUNT 5.35 10^6/uL (4.30-6.10); WHITE BLOOD COUNT 7.6 10^3/uL (4.0-10.0)
[2023-03-16 11:15] LABS: HEMOGLOBIN A1c 5.4 % (4.0-6.0)
[2023-03-16 11:19] LABS: ALKALINE PHOSPHATASE 51 U/L (46-116); ALT/SGPT 28 U/L (7.0-40); AST/SGOT 18 U/L (<34); BILIRUBIN,TOTAL 0.7 MG/DL (0.3-1.2); BLOOD UREA NITROGEN 17 MG/DL (9-23); CALCIUM LEVEL 9.7 MG/DL (8.3-10.6); CARBON DIOXIDE LEVEL 29 MMOL/L (20-31); CHLORIDE LEVEL 105 MMOL/L (98-107); CREATININE FOR GFR 0.78 MG/DL (0.70-1.30); GLOMERULAR FILTRATION RATE > 60.0 (>49); GLUCOSE, FASTING 101 MG/DL (74-106); POTASSIUM SERUM 5.1 MMOL/L (3.5-5.1); SODIUM LEVEL 140 MMOL/L (136-145)
[2023-03-17 19:06] LABS: IMMUNOTYPING SERUM IGA SO 180 mg/dL (61-437); IMMUNOTYPING SERUM IGM SO 80 mg/dL (20-172); INSULIN LEVEL 21.8 uIU/mL (2.6-24.9)
== END ==
LOC: M PLALAB 07:07
PROVIDERS: ATTEND Family Medicine
DX: Z12.5 Encounter for screening for malignant neoplasm of prostate (principal); R73.01 Impaired fasting glucose; K76.0 Fatty (change of) liver, not elsewhere classified; M47.816 Spondylosis without myelopathy or radiculopathy, lumbar region; D75.89 Other specified diseases of blood and blood-forming organs
CPT/HCPCS: 36415; 80053; 82784; 83036; 83525; 84155; 84165; 85025; 86334; 86335; G0103

== ENCOUNTER → 2023-03-17 | Outpatient (REF) | payer OTHER | LOC: M SFHCPLAZ 13:54 | PROVIDERS: ATTEND Family Medicine | DX: K76.0 Fatty (change of) liver, not elsewhere classified (principal); R73.01 Impaired fasting glucose; I10 Essential (primary) hypertension ==

== ENCOUNTER → 2023-04-10 | Outpatient (CLI) | payer OTHER | LOC: M PLAIMG 12:49 | PROVIDERS: ATTEND Family Medicine | DX: R10.11 Right upper quadrant pain (principal) ==

== ENCOUNTER → 2023-12-25 | Outpatient (CLI) | payer OTHER | LOC: M RAD 19:15 | PROVIDERS: ATTEND Family Medicine | DX: F17.210 Nicotine dependence, cigarettes, uncomplicated (principal) ==

== ENCOUNTER → 2024-01-25 | Outpatient (CLI) | payer OTHER | LOC: M WHC 08:59 | PROVIDERS: ATTEND Family Medicine | DX: K74.00 Hepatic fibrosis, unspecified (principal); K80.20 Calculus of gallbladder without cholecystitis without obstruction; K76.0 Fatty (change of) liver, not elsewhere classified; N28.1 Cyst of kidney, acquired ==

== ENCOUNTER → 2024-02-22 | Outpatient (CLI) | payer OTHER ==
[2024-02-22 10:30] LABS: INR 1.02; PARTIAL THROMBOPLASTIN TIME 29.5 SECONDS (24.8-34.2); PROTHROMBIN TIME 13.1 SECONDS (12.5-14.5)
[2024-02-22 10:42] LABS: ALBUMIN 3.9 G/DL (3.2-5.2); ALKALINE PHOSPHATASE 59 U/L (46-116); ALT/SGPT 31 U/L (7.0-40); AST/SGOT 20 U/L (<34); BILIRUBIN,TOTAL 0.7 MG/DL (0.3-1.2); BLOOD UREA NITROGEN 19 MG/DL (9-23); CALCIUM LEVEL 9.9 MG/DL (8.3-10.6); CARBON DIOXIDE LEVEL 28 MMOL/L (20-31); CHLORIDE LEVEL 107 MMOL/L (98-107); CHOLESTEROL LEVEL 183 MG/DL (<200); CPK CREATINE PHOSPHOKINASE 63 U/L (46-171); CREATININE FOR GFR 0.79 MG/DL (0.70-1.30); GLOMERULAR FILTRATION RATE > 60.0 (>49); GLUCOSE, FASTING 106 MG/DL (74-106); HDL CHOLESTEROL 37.3 MG/DL (>40); HEMOGLOBIN A1c 5.6 % (4.0-6.0); MAGNESIUM LEVEL 1.9 MG/DL (1.8-2.4); NON-HDL-C 145.7 MG/DL; POTASSIUM SERUM 4.5 MMOL/L (3.5-5.1); PSA SCREENING 1.16 NG/ML (< 4.00); SODIUM LEVEL 139 MMOL/L (136-145); TOTAL PROTEIN 6.5 G/DL (5.7-8.2); TRIGLYCERIDES LEVEL 419 MG/DL (<150)
== END ==
LOC: M PLALAB 07:00
PROVIDERS: ATTEND Family Medicine
DX: Z12.5 Encounter for screening for malignant neoplasm of prostate (principal); K74.00 Hepatic fibrosis, unspecified; R73.01 Impaired fasting glucose; I10 Essential (primary) hypertension
CPT/HCPCS: 36415; 80053; 80061; 82105; 82550; 83036; 83735; 85610; 85730; 86140; G0103

== ENCOUNTER → 2024-02-24 | Outpatient (CLI) | payer OTHER | LOC: M RAD 15:45 | PROVIDERS: ATTEND Family Medicine | DX: Z12.2 Encounter for screening for malignant neoplasm of respiratory organs (principal); F17.210 Nicotine dependence, cigarettes, uncomplicated; I70.0 Atherosclerosis of aorta; I25.10 Atherosclerotic heart disease of native coronary artery without angina pectoris ==

== ENCOUNTER → 2024-05-19 | Outpatient (CLI) | payer OTHER ==
[~2024-05-19] MED LIST changes: +GABA-1172 PO; -GABA-282 PO
[2024-05-19 11:00] LABS: BASO # 0.1 10^3/uL (0.0-0.2); BASO % 0.7 % (0.0-1.0); EOS # 0.3 10^3/uL (0.0-0.5); LYMPH # 2.6 10^3/uL (1.5-5.0); LYMPH % 30.1 % (24.0-44.0); MEAN CORPUSCULAR HEMOGLOBIN 31.3 pg (27.0-33.0); MEAN CORPUSCULAR HGB CONC 32.7 g/dl (32.0-36.5); MEAN CORPUSCULAR VOLUME 95.7 fl (80.0-96.0); MONO # 0.7 10^3/uL (0.0-0.8); MONO % 8.3 % (2.0-8.0); NEUTROPHILS # 4.9 10^3/uL (1.5-8.5); NEUTROPHILS % 57.5 % (36.0-66.0); PLATELET COUNT, AUTOMATED 311 10^3/uL (150-450); RED BLOOD COUNT 5.12 10^6/uL (4.30-6.10); WHITE BLOOD COUNT 8.5 10^3/uL (4.0-10.0)
[2024-05-19 11:19] LABS: ERYTHROCYTE SEDIMENTATION RATE 9 mm/hr (0-20)
[2024-05-19 13:39] LABS: ALBUMIN 3.9 G/DL (3.2-5.2); ALKALINE PHOSPHATASE 58 U/L (46-116); ALT/SGPT 26 U/L (7.0-40); AST/SGOT 18 U/L (<34); BILIRUBIN,TOTAL 0.8 MG/DL (0.3-1.2); BLOOD UREA NITROGEN 16 MG/DL (9-23); CALCIUM LEVEL 10.1 MG/DL (8.3-10.6); CARBON DIOXIDE LEVEL 30 MMOL/L (20-31); CHLORIDE LEVEL 108 MMOL/L (98-107); CREATININE FOR GFR 0.77 MG/DL (0.70-1.30); GLOMERULAR FILTRATION RATE > 60.0 (>49); GLUCOSE, FASTING 108 MG/DL (74-106); POTASSIUM SERUM 5.2 MMOL/L (3.5-5.1); SODIUM LEVEL 139 MMOL/L (136-145); TOTAL PROTEIN 6.8 G/DL (5.7-8.2)
== END ==
LOC: M PLALAB 09:58
PROVIDERS: ATTEND Registered Nurse
DX: R61 Generalized hyperhidrosis (principal)

== ENCOUNTER → 2024-05-20 | Outpatient (CLI) | payer OTHER | LOC: M PLALAB 07:14 | PROVIDERS: ATTEND Registered Nurse | DX: R61 Generalized hyperhidrosis (principal) ==

== ENCOUNTER → 2024-06-16 | Outpatient (CLI) | payer OTHER | LOC: M PLAIMG 08:22 | PROVIDERS: ATTEND Registered Nurse | DX: I08.0 Rheumatic disorders of both mitral and aortic valves (principal); R06.02 Shortness of breath; R61 Generalized hyperhidrosis ==

== ENCOUNTER → 2024-09-20 | Outpatient (CLI) | payer OTHER, MEDICAID ==
[~2024-09-20] MED LIST changes: -ADV250INH INH; +ADVA1AER9 INH
== END ==
LOC: M RAD 09:53
DX: R60.9 Edema, unspecified (principal); Z53.9 Procedure and treatment not carried out, unspecified reason

== ENCOUNTER → 2024-10-04 | Outpatient (CLI) | payer MEDICARE, MEDICAID ==
[2024-10-04 10:51] LABS: BASO # 0.1 10^3/uL (0.0-0.2); BASO % 0.8 % (0.0-1.0); EOS # 0.3 10^3/uL (0.0-0.5); EOS % 3.7 % (0.0-3.0); HEMOGLOBIN 16.1 g/dl (13.5-17.5); LYMPH # 2.3 10^3/uL (1.5-5.0); LYMPH % 28.1 % (24.0-44.0); MEAN CORPUSCULAR HEMOGLOBIN 30.6 pg (27.0-33.0); MEAN CORPUSCULAR HGB CONC 32.2 g/dl (32.0-36.5); MEAN CORPUSCULAR VOLUME 95.1 fl (80.0-96.0); MONO # 0.7 10^3/uL (0.0-0.8); MONO % 8.5 % (2.0-8.0); NEUTROPHILS # 4.9 10^3/uL (1.5-8.5); NEUTROPHILS % 58.5 % (36.0-66.0); PLATELET COUNT, AUTOMATED 328 10^3/uL (150-450); RED BLOOD COUNT 5.26 10^6/uL (4.30-6.10); WHITE BLOOD COUNT 8.3 10^3/uL (4.0-10.0)
[2024-10-04 11:11] LABS: HEMOGLOBIN A1c 5.8 % (4.0-6.0)
[2024-10-04 11:21] LABS: FERRITIN 208.4 NG/ML (10.5-307.3)
[2024-10-04 11:22] LABS: THYROID STIMULATING HORMONE 2.302 uIU/ML (0.55-4.78)
[2024-10-04 11:23] LABS: ALKALINE PHOSPHATASE 51 U/L (40-129); ALT/SGPT 31 U/L (7.0-40); AST/SGOT 25 U/L (<34); BILIRUBIN,TOTAL 0.9 MG/DL (0.3-1.2); BLOOD UREA NITROGEN 17 MG/DL (9-23); CARBON DIOXIDE LEVEL 29 MMOL/L (20-31); CHLORIDE LEVEL 108 MMOL/L (98-107); CHOLESTEROL LEVEL 179 MG/DL (<200); CHOLESTEROL RISK RATIO 3.82 (<5); CREATININE FOR GFR 0.83 MG/DL (0.70-1.30); GLOMERULAR FILTRATION RATE > 60.0 (>49); GLUCOSE, FASTING 107 MG/DL (74-106); HDL CHOLESTEROL 46.8 MG/DL (>40); LDL CHOLESTEROL 85.4 MG/DL (<100); NON-HDL-C 132.2 MG/DL; POTASSIUM SERUM 5.5 MMOL/L (3.5-5.1); SODIUM LEVEL 141 MMOL/L (136-145); TOTAL PROTEIN 7.1 G/DL (5.7-8.2); TRIGLYCERIDES LEVEL 234 MG/DL (<150)
[2024-10-04 11:24] LABS: FREE T4 1.19 NG/DL (0.89-1.76)
[2024-10-05 10:27] LABS: INSULIN LEVEL 32.5 uIU/mL (<=18.4)
== END ==
LOC: M PLALAB 07:19
PROVIDERS: ATTEND Family Medicine
DX: E78.2 Mixed hyperlipidemia (principal); K74.00 Hepatic fibrosis, unspecified; R73.01 Impaired fasting glucose

== ENCOUNTER → 2024-10-05 | Outpatient (CLI) | payer MEDICARE, MEDICAID ==
[~2024-10-05] MED LIST changes: +ISOVUE-370 76% 100ML VIAL ONE
== END ==
LOC: M PLAIMG 13:58
DX: R60.9 Edema, unspecified (principal)
CPT/HCPCS: 70491; Q9967

== ENCOUNTER → 2024-11-23 | Outpatient (CLI) | payer MEDICARE, MEDICAID ==
[~2024-11-23] MED LIST changes: -ISOVUE-370 76% 100ML VIAL ONE
[2024-11-23 13:44] LABS: BLOOD UREA NITROGEN 15 MG/DL (9-23); CALCIUM LEVEL 8.8 MG/DL (8.3-10.6); CARBON DIOXIDE LEVEL 28 MMOL/L (20-31); CHLORIDE LEVEL 108 MMOL/L (98-107); CREATININE FOR GFR 0.71 MG/DL (0.70-1.30); GLOMERULAR FILTRATION RATE > 90.0 (>49); GLUCOSE, FASTING 115 MG/DL (74-106); POTASSIUM SERUM 4.9 MMOL/L (3.5-5.1); SODIUM LEVEL 139 MMOL/L (136-145)
== END ==
LOC: M PLALAB 09:41
PROVIDERS: ATTEND Registered Nurse
DX: I11.9 Hypertensive heart disease without heart failure (principal)

== ENCOUNTER → 2025-02-27 | Outpatient (CLI) | payer MEDICARE, MEDICAID | LOC: M RAD 07:01 | PROVIDERS: ATTEND Family Medicine | DX: Z12.2 Encounter for screening for malignant neoplasm of respiratory organs (principal); F17.210 Nicotine dependence, cigarettes, uncomplicated ==

== ENCOUNTER → 2025-07-10 | Outpatient (CLI) | payer MEDICARE, MEDICAID ==
[~2025-07-10] MED LIST changes: -EZET10TA21 PO; +EZET10TA57 PO; -LORA-753 PO; +LORA-973 PO
[2025-07-10 10:29] LABS: BASO # 0.1 10^3/uL (0.0-0.2); BASO % 0.7 % (0.0-1.0); EOS # 0.2 10^3/uL (0.0-0.5); EOS % 2.8 % (0.0-3.0); LYMPH # 2.1 10^3/uL (1.5-5.0); LYMPH % 25.5 % (24.0-44.0); MONO # 0.7 10^3/uL (0.0-0.8); MONO % 8.9 % (2.0-8.0); NEUTROPHILS # 5.1 10^3/uL (1.5-8.5); NEUTROPHILS % 61.5 % (36.0-66.0); PLATELET COUNT, AUTOMATED 353 10^3/uL (150-450)
[2025-07-10 11:03] LABS: CALCIUM LEVEL 9.6 MG/DL (8.3-10.6); CARBON DIOXIDE LEVEL 26 MMOL/L (20-31); CHLORIDE LEVEL 107 MMOL/L (98-107); CHOLESTEROL LEVEL 183 MG/DL (<200); CHOLESTEROL RISK RATIO 3.45 (<5); CREATININE FOR GFR 0.71 MG/DL (0.70-1.30); FREE T4 1.19 NG/DL (0.89-1.76); GLOMERULAR FILTRATION RATE > 90.0 (>49); LDL CHOLESTEROL 95.6 MG/DL (<100); MAGNESIUM LEVEL 2.0 MG/DL (1.8-2.4); NON-HDL-C 130.0 MG/DL; POTASSIUM SERUM 4.7 MMOL/L (3.5-5.1); SODIUM LEVEL 141 MMOL/L (136-145); TRIGLYCERIDES LEVEL 172 MG/DL (<150)
== END ==
LOC: M PLALAB 07:22
PROVIDERS: ATTEND Nurse Practitioner Family
DX: E78.2 Mixed hyperlipidemia (principal); E11.9 Type 2 diabetes mellitus without complications; R06.02 Shortness of breath